=== PATIENT | female | born 1960 | race Two or more races ===

== ENCOUNTER 2016-12-02 20:55 | Emergency (ER) | payer OTHER ==
[~2016-12-02] VITALS: Ht 157.5 cm; Wt 68.9 kg
--- NOTE | 2016-12-02 21:13 | NUR ---
PT AMBULATORY TO ER [facility] 09. C/O SORE THROAT AND COUGH X 1 WEEK NOW. TOOK OTC MEDS W/ NO RELIEF. [employer]. VSS. AWAITING MD PEREZ.
--- NOTE | 2016-12-02 22:08 | NUR ---
DR RAMIREZ AT BEDSIDE FOR EVAL.
[2016-12-02] MEDS ORDERED: AMOX/CLAVULANATE 875 MG TABLET ONE (22:21)
[2016-12-02] MEDS: AMOX/CLAVULANATE 875 MG TABLET PO ONE (22:24)
--- NOTE | 2016-12-02 22:36 | NUR ---
Patient discharged to home in stable condition. Written and verbal after care instructions given. Patient verbalizes understanding of instruction.
[2016-12-02 22:37] VITALS: BP 136/87
== END 2016-12-02 22:37 | disposition home or self-care (01) ==
LOC: ER 20:58
DX: J02.9 Acute pharyngitis, unspecified (principal)
CPT/HCPCS: 99283; A4606; Z7610

== ENCOUNTER 2019-10-16 19:22 | Emergency (ER) | payer MEDICAID, OTHER ==
[~2019-10-16] VITALS: Ht 157.5 cm; Wt 72.6 kg
--- NOTE | 2019-10-16 19:35 | NUR ---
AT BEDSIDE FOR EVAL
--- NOTE | 2019-10-16 19:37 | NUR ---
URINE COLLECTED AND SENT TO LAB
--- NOTE | 2019-10-16 19:51 | NUR ---
BLOOD DRAWN AND GIVEN TO LAB
[2019-10-16 19:55] LABS: BASOPHILS # (AUTO) 0.1 /CMM (0.0-0.2); BASOPHILS % (AUTO) 0.7 % (0.0-2.0); EOSINOPHILS % (AUTO) 1.5 % (0.0-6.0); HEMATOCRIT 39 % (33-45); HEMOGLOBIN 12.5 g/dL (11.5-14.8); LYMPHOCYTES # (AUTO) 4.1 /CMM (0.8-4.8); LYMPHOCYTES % (AUTO) 42.6 % (20.0-44.0); MEAN CORPUSCULAR HGB CONC 33 g/dl (31.0-36.0); MEAN CORPUSCULAR VOLUME 88 fL (82-100); MONOCYTES # (AUTO) 0.5 /CMM (0.1-1.30); MONOCYTES % (AUTO) 5.1 % (2.0-12.0); NEUTROPHILS # (AUTO) 4.8 /CMM (1.8-8.9); NEUTROPHILS % (AUTO) 50.1 % (43.0-81.0); PLATELET COUNT (AUTO) 345 /CMM (150-450); RED BLOOD CELL COUNT(AUTO) 4.37 MIL/uL (4.0-5.2); WHITE BLOOD COUNT (AUTO) 9.5 K/uL (4.3-11.0)
[2019-10-16 19:56] LABS: APPEARANCE,URINE Clear (CLEAR); BILIRUBIN,URINE Negative (NEGATIVE); BLOOD, URINE Trace-intact Ery/uL (NEGATIVE); COLOR,URINE Yellow (YELLOW); KETONES,URINE Negative (NEGATIVE); LEUKOCYTE ESTERASE ,URINE Moderate (NEGATIVE); NITRITE, URINE Negative (NEGATIVE); PH,URINE 6.5 (5.0-8.0); PROTEIN,URINE Negative (NEGATIVE); UGLUCOSE Negative (NEGATIVE)
[2019-10-16] MEDS ORDERED: MORPHINE SULFATE INJ 2 MG/ML DISP.SYRIN IV ONE ×2 (20:00→21:30)
[2019-10-16] MEDS ORDERED: ONDANSETRON HCL/PF 4 MG/2 ML VIAL IVP ONE (20:00)
[2019-10-16] MEDS ORDERED: IV NS 0.9% 1,000 ML BAG IV ONE (20:00)
[2019-10-16] MEDS ORDERED: PANTOPRAZOLE 40 MG VIAL IV ONE (20:00)
[2019-10-16 20:03] LABS: CALCIUM, SERUM 8.7 mg/dL (8.5-10.1); CREATININE 0.6 mg/dL (0.6-1.3); POTASSIUM 3.7 mmol/L (3.5-5.1)
[2019-10-16] MEDS ORDERED: MORPHINE SULFATE INJ 4 MG/ML DISP.SYRIN ONE (20:05)
[2019-10-16] MEDS ORDERED: PANTOPRAZOLE 40 MG VIAL ONE (20:05)
[2019-10-16] MEDS ORDERED: ONDANSETRON HCL/PF 4 MG/2 ML VIAL ONE (20:05)
[2019-10-16 20:06] LABS: BACTERIA,URINE None seen /HPF (None Seen); RBC,URINE 0-2 /HPF (0-2); SQUAMOUS EPITHELIAL CELL,UR Few /HPF (None Seen)
[2019-10-16 20:09] LABS: ALBUMIN 3.5 g/dL (3.4-5.0); BILIRUBIN,TOTAL 0.2 mg/dL (0.2-1.0); TOTAL PROTEIN, SERUM 8.1 g/dL (6.4-8.2)
--- NOTE | 2019-10-16 20:14 | NUR ---
PT TAKEN TO RADIOLOGY VIA JOSSELINE
--- NOTE | 2019-10-16 20:22 | NUR ---
PT RETURNED FROM RADIOLOGY
[2019-10-16] MEDS ORDERED: KETOROLAC TROMETHAMINE INJ 30 MG/ML VIAL ONE (21:49)
--- NOTE | 2019-10-16 21:59 | NUR ---
IV removed. Catheter intact and site benign. Pressure and 4x4 applied to site. No bleeding noted.Patient discharged to home in stable condition. Written and verbal after care instructions given. Patient verbalizes understanding of instruction.
[2019-10-16 22:00] VITALS: BP 146/98
[2019-10-16] MEDS ORDERED: KETOROLAC TROMETHAMINE INJ 30 MG/ML VIAL IV ONE (22:00)
== END 2019-10-16 22:00 | disposition home or self-care (01) ==
LOC: ER 19:26
DX: R10.11 Right upper quadrant pain (principal); R10.13 Epigastric pain; K59.00 Constipation, unspecified
CPT/HCPCS: 36415; 71045; 74176; 76705; 80048; 80076; 81001; 83690; 85025; 87086; 93005; 96374; 96375; 99284; C9113; J1885; J2270; J2405; J7030; 81000-TC

== ENCOUNTER 2021-11-16 10:29 | Emergency (ER) | payer MEDICARE, OTHER ==
[~2021-11-16] VITALS: Ht 157.5 cm; Wt 70.8 kg
--- NOTE | 2021-11-16 10:40 | NUR ---
BIB C/O R SHOULDER PAIN RADIATES TO THE BACK AREA AND CHEST FOR 4 DAYS. RATES PAIN 8/10. IN ROOM AIR AND DENIES SOB. RESPIRATION REGULAR AND UNLABORED. WILL CONTINUE TO MONITOR THE PATIENT.
--- NOTE | 2021-11-16 11:54 | NUR ---
Patria marcelino in [facility] - 11/16/21 at 1204 by CARL PT TAKEN TO CT VIA JOSSELINE
--- NOTE | 2021-11-16 12:04 | NUR ---
X RAY AT BEDSIDE
[2021-11-16] MEDS ORDERED: METH4TAB3 PO (12:48)
--- NOTE | 2021-11-16 12:57 | NUR ---
Patient discharged to home in stable condition. Written and verbal after care instructions given. Patient verbalizes understanding of instruction.
[2021-11-16 13:00] VITALS: BP 137/81
== END 2021-11-16 13:00 | disposition home or self-care (01) ==
LOC: ER 10:30
DX: M54.2 Cervicalgia (principal); M25.511 Pain in right shoulder; Z79.52 Long term (current) use of systemic steroids
CPT/HCPCS: 72050-TC; 73030-TC

== ENCOUNTER 2022-08-30 22:25 | Emergency (ER) | payer MEDICARE, OTHER ==
[~2022-08-30] VITALS: Ht 157.5 cm; Wt 69.9 kg
[~2022-08-30 22:25] MED LIST: METH4TAB3 PO
[2022-08-30] MEDS ORDERED: ACETAMINOPHEN ES 500 MG TABLET ONE (23:28)
[2022-08-30] MEDS ORDERED: ONDANSETRON HCL/PF 4 MG/2 ML VIAL ONE (23:28)
[2022-08-30] MEDS ORDERED: ONDANSETRON HCL/PF 4 MG/2 ML VIAL IVP ONE (23:30)
[2022-08-30] MEDS ORDERED: IV NS 0.9% 1,000 ML BAG IV ONE (23:30)
[2022-08-30] MEDS ORDERED: ACETAMINOPHEN ES 500 MG TABLET PO ONE (23:30)
--- NOTE | 2022-08-30 23:55 | NUR ---
XRAY AT BEDSIDE
[2022-08-31 00:10] LABS: BASOPHILS % (AUTO) 0.2 % (0.0-2.0); EOSINOPHILS % (AUTO) 1.7 % (0.0-6.0); HEMATOCRIT 37 % (33-45); HEMOGLOBIN 11.8 g/dL (11.5-14.8); LYMPHOCYTES # (AUTO) 3.5 K/uL (0.8-4.8); LYMPHOCYTES % (AUTO) 68.3 % (20.0-44.0); MEAN CORPUSCULAR HGB CONC 32 g/dl (31.0-36.0); MEAN CORPUSCULAR VOLUME 87 fL (82-100); MONOCYTES # (AUTO) 0.5 K/uL (0.1-1.30); MONOCYTES % (AUTO) 9.7 % (2.0-12.0); NEUTROPHILS % (AUTO) 20.1 % (43.0-81.0); PLATELET COUNT (AUTO) 238 K/uL (150-450); WHITE BLOOD COUNT (AUTO) 5.1 K/uL (4.3-11.0)
[2022-08-31 00:17] LABS: CALCIUM, SERUM 8.1 mg/dL (8.5-10.1); CARBON DIOXIDE 32 mmol/L (21-32); CHLORIDE 106 mmol/L (98-107); CREATININE 0.7 mg/dL (0.6-1.3); GLUCOSE 138 mg/dL (74-106); POTASSIUM 3.8 mmol/L (3.5-5.1); SODIUM SERUM 139 mmol/L (136-145); UREA NITROGEN, BLOOD 13 mg/dL (7-18)
[2022-08-31 00:24] LABS: ALANINE AMINOTRANSFERASE 13 U/L (12-78); ALBUMIN 3.2 g/dL (3.4-5.0); ALKALINE PHOSPHATASE 60 U/L (46-116); ASPARTATE AMINOTRANSFERASE 22 U/L (15-37); BILIRUBIN,DIRECT 0.1 mg/dL (0.0-0.2); BILIRUBIN,TOTAL 0.2 mg/dL (0.2-1.0); LIPASE 150 U/L (73-393)
[2022-08-31] MEDS ORDERED: CYCL5TAB PO (02:09)
[2022-08-31] MEDS ORDERED: IBUP-1955 PO (02:09)
[2022-08-31] MEDS ORDERED: BENZ-13 PO (02:09)
--- NOTE | 2022-08-31 02:34 | NUR ---
Patient discharged to home in stable condition. Written and verbal after care instructions given. Patient verbalizes understanding of instruction.
[2022-08-31 02:35] VITALS: BP 111/79
== END 2022-08-31 02:35 | disposition home or self-care (01) ==
LOC: ER 22:27
DX: M54.6 Pain in thoracic spine (principal); R05.9 Cough, unspecified; Z79.899 Other long term (current) drug therapy
CPT/HCPCS: 99285; 74176; 96374; 71045; 96361; 93005; 85025; 80048; 83690; 80076; 36415; 84484; 85730; J2405; J7030